=== PATIENT | female | born 1970 | race African-American/Black ===

== ENCOUNTER 2021-09-03 21:00 | Emergency (ER) | payer BC ==
[2021-09-03 21:56] LABS: Urine Blood Trace-intact (Negative); Urine Glucose Negative (Negative); Urine Protein 1+ (Negative); Urine pH 7.5 (5.0-7.0)
[2021-09-03 22:00] LABS: Absolute Lymphocytes (CBC) 2.4 K/uL (0.7-4.9); Hematocrit 40.5 % (36.0-45.0); Lymphocytes % 36.2 % (15.3-44.8); MPV 7.2 fL (7.6-11.3); RBC Red Blood Cell Count 4.84 M/uL (3.86-4.86)
[2021-09-03 22:04] LABS: Protime INR 1.03
--- NOTE | 2021-09-03 22:04 | RAD REPORT ---
EXAM DESCRIPTION: RAD - Chest Single View - 09/03/2021 9:56 pm CLINICAL HISTORY: COUGH COMPARISON: No comparisons FINDINGS: Lines: None. Lungs: No evidence of edema or pneumonia. Pleural: No significant pleural effusions or pneumothorax. Cardiac: The heart size is within normal limits. Bones: No acute fractures. Other: IMPRESSION: No acute cardiopulmonary disease.
[2021-09-03 22:17] LABS: ALT/SGPT 25 U/L (12-78); AST/SGOT 16 U/L (15-37); Albumin 3.3 g/dL (3.4-5.0); Alkaline Phosphatase 69 U/L (45-117); BUN Blood Urea Nitrogen 10 mg/dL (7-18); Bicarbonate 31 mmol/L (21-32); Bilirubin Total 0.2 mg/dL (0.2-1.0); Glomerular Filtration Rate 108 ml/min (=/>90); Glucose Level 93 mg/dL (74-106); Magnesium 1.8 mg/dL (1.8-2.4); NT PRO-BNP 24 pg/mL (<125); Potassium 3.6 mmol/L (3.5-5.1); Protein, Total 8.1 g/dL (6.4-8.2); Sodium Level 139 mmol/L (136-145); Troponin High Sensitivity 7.4 pg/mL (<58.9)
[2021-09-03 22:18] LABS: Bilirubin Direct < 0.1 mg/dL (0-0.2)
--- NOTE | 2021-09-03 22:37 | ER ---
Nurse's Notes [facility] Name: Herminia Giron Age: 51 yrs Sex: Female : 1970 Arrival Date: 09/03/2021 Time: 21:02 Bed 19 Private MD: Celso Ruiz Diagnosis: Dizziness and giddiness;Essential (primary) hypertension Presentation: 09/03 21:24 Chief complaint: Patient states: I took my blood pressure this morning and it was kd3 200/115. I have a little bit of a headache and I am a little dizzy. I took my amlodipine around lunchtime. Coronavirus screen: Vaccine status: Patient reports receiving the 2nd dose of the covid vaccine. Ebola Screen: Patient negative for fever greater than or equal to 101.5 degrees Fahrenheit, and additional compatible Ebola Virus Disease symptoms. 21:24 Method Of Arrival: Ambulatory kd3 21:26 Initial Sepsis Screen: Does the patient meet any 2 criteria? No. Patient's initial kd3 sepsis screen is negative. Does the patient have a suspected source of infection? No. Patient's initial sepsis screen is negative. Risk Assessment: Do you want to hurt yourself or someone else? Patient reports no desire to harm self or others. Onset of symptoms was September 03, 2021. 21:26 Acuity: CRISTAL 3 kd3 Triage Assessment: 21:29 General: Appears in no apparent distress. Behavior is calm, cooperative. Pain: kd3 Complains of pain in headache. 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 - Social history:: Smoking status: unknown. Screenin:31 Abuse screen: Denies threats or abuse. Denies injuries from another. Nutritional kd3 screening: No deficits noted. Tuberculosis screening: No symptoms or risk factors identified. Fall Risk None identified. Assessment: 21:32 General: Appears in no apparent distress. Behavior is calm, cooperative. Pain: kd3 Complains of pain in headache. Neuro: Level of Consciousness is awake, alert, obeys commands, Oriented to person, place, time, situation. Cardiovascular: Patient's skin is warm and dry. Respiratory: Airway is patent Trachea midline Respiratory effort is even, unlabored, Respiratory pattern is regular, symmetrical. Vital Signs: 21:26 BP 189 / 97; Pulse 82; Resp 18; Temp 98.5(O); Pulse Ox 97% on R/A; Weight 140.61 kg; kd3 Height 5 ft. 2 in. (157.48 cm); Pain 0/10; 21:32 BP 165 / 88; Pulse 81; Resp 18; Pulse Ox 96% on R/A; kd3 22:56 BP 133 / 70; Pulse 79; Resp 15; Pulse Ox 100% on R/A; kd3 21:26 Body Mass Index 56.70 (140.61 kg, 157.48 cm) kd3 ED Course: 21:02 Patient arrived in ED. as 21:02 Celso Ruiz MD is Private Physician. as 21:17 Papa Cheng MD is Attending Physician. yan 21:24 Alyce Delgado, NATALI is Primary Nurse. kd3 21:29 Triage completed. kd3 21:29 Arm band placed on right wrist. kd3 21:31 Patient has correct armband on for positive identification. kd3 21:31 No provider procedures requiring assistance completed. kd3 21:58 XRAY Chest (1 view) In Process Unspecified. EDMS 22:36 Celso Ruiz MD is Referral Physician. yan 22:57 IV discontinued, intact, bleeding controlled, No redness/swelling at site. Pressure kd3 dressing applied. Administered Medications: No medications were administered Medication: 21:32 VIS not applicable for this client. kd3 Outcome: 22:36 Discharge ordered by . yan 22:57 Discharged to home ambulatory. kd3 22:57 Condition: stable 22:57 Discharge instructions given to patient, family, Instructed on discharge instructions, follow up and referral plans. medication usage, Demonstrated understanding of instructions, follow-up care, medications, Prescriptions given X 3. 22:57 Patient left the ED. kd3 23:17 Patient left the ED. zm Signatures: Dispatcher [employer] EDMS Papa Cheng MD MD yan Saulo, Marjan as Sandy, Alyce, NATALI RN kd3 Majo Vernon
--- NOTE | 2021-09-03 22:37 | EDPHYS ---
Physician Documentation [facility] Name: Herminia Giron Age: 51 yrs Sex: Female : 1970 Arrival Date: 09/03/2021 Time: 21:02 Bed 19 Private MD: Celso Ruiz ED Physician Papa Cheng HPI: 09/03 21:44 This 51 yrs old Black Female presents to ER via Ambulatory with complaints of High yan Blood Pressure. 21:44 The patient has elevated blood pressure and discovered this WORK. Onset: The yan symptoms/episode began/occurred today. Modifying factors: The symptoms are aggravated by activity, The symptoms are alleviated by remaining still. Associated signs and symptoms: The patient has no apparent associated signs or symptoms. The patient has experienced similar episodes in the past, a few times. 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 - Social history:: Smoking status: unknown. ROS: 21:46 Constitutional: Negative for fever, chills, and weight loss, Eyes: Negative for injury, yan pain, redness, and discharge, ENT: Negative for injury, pain, and discharge, Neck: Negative for injury, pain, and swelling, Cardiovascular: Negative for chest pain, palpitations, and edema, Respiratory: Negative for shortness of breath, cough, wheezing, and pleuritic chest pain, Abdomen/GI: Negative for abdominal pain, nausea, vomiting, diarrhea, and constipation, Back: Negative for injury and pain, : Negative for injury, bleeding, discharge, and swelling, MS/Extremity: Negative for injury and deformity, Skin: Negative for injury, rash, and discoloration, Psych: Negative for depression, anxiety, suicide ideation, homicidal ideation, and hallucinations, Allergy/Immunology: Negative for hives, rash, and allergies, Endocrine: Negative for neck swelling, polydipsia, polyuria, polyphagia, and marked weight changes, Hematologic/Lymphatic: Negative for swollen nodes, abnormal bleeding, and unusual bruising. 21:46 Neuro: Positive for dizziness. Exam: 21:46 Constitutional: This is a well developed, well nourished patient who is awake, alert, yan and in no acute distress. Head/Face: Normocephalic, atraumatic. Eyes: Pupils equal round and reactive to light, extra-ocular motions intact. Lids and lashes normal. Conjunctiva and sclera are non-icteric and not injected. Cornea within normal limits. Periorbital areas with no swelling, redness, or edema. ENT: Nares patent. No nasal discharge, no septal abnormalities noted. Tympanic membranes are normal and external auditory canals are clear. Oropharynx with no redness, swelling, or masses, exudates, or evidence of obstruction, uvula midline. Mucous membranes moist. Neck: Trachea midline, no thyromegaly or masses palpated, and no cervical lymphadenopathy. Supple, full range of motion without nuchal rigidity, or vertebral point tenderness. No Meningismus. Chest/axilla: Normal chest wall appearance and motion. Nontender with no deformity. No lesions are appreciated. Cardiovascular: Regular rate and rhythm with a normal S1 and S2. No gallops, murmurs, or rubs. Normal PMI, no JVD. No pulse deficits. Respiratory: Lungs have equal breath sounds bilaterally, clear to auscultation and percussion. No rales, rhonchi or wheezes noted. No increased work of breathing, no retractions or nasal flaring. Abdomen/GI: Soft, non-tender, with normal bowel sounds. No distension or tympany. No guarding or rebound. No evidence of tenderness throughout. Back: No spinal tenderness. No costovertebral tenderness. Full range of motion. Skin: Warm, dry with normal turgor. Normal color with no rashes, no lesions, and no evidence of cellulitis. MS/ Extremity: Pulses equal, no cyanosis. Neurovascular intact. Full, normal range of motion. Neuro: Awake and alert, GCS 15, oriented to person, place, time, and situation. Cranial nerves II-XII grossly intact. Motor strength 5/5 in all extremities. Sensory grossly intact. Cerebellar exam normal. Normal gait. Psych: Awake, alert, with orientation to person, place and time. Behavior, mood, and affect are within normal limits. 21:46 Musculoskeletal/extremity: DVT Exam: No signs of deep vein thrombosis. no pain, no swelling, no tenderness, negative Homans' sign noted on exam, no appreciated bluish discoloration, no erythema, no increased warmth. 23:15 ECG was reviewed by the Attending Physician. [facility] Vital Signs: 21:26 BP 189 / 97; Pulse 82; Resp 18; Temp 98.5(O); Pulse Ox 97% on R/A; Weight 140.61 kg; kd3 Height 5 ft. 2 in. (157.48 cm); Pain 0/10; 21:32 BP 165 / 88; Pulse 81; Resp 18; Pulse Ox 96% on R/A; kd3 22:56 BP 133 / 70; Pulse 79; Resp 15; Pulse Ox 100% on R/A; kd3 21:26 Body Mass Index 56.70 (140.61 kg, 157.48 cm) kd3 MDM: 21:17 Patient medically screened. [facility] 21:47 Differential diagnosis: hypertensive crisis, Malignant HTN. Differential diagnosis: yan cardiac arrhythmia, CVA, generalized weakness, GI bleed, idiopathic dizziness, near-syncope, TIA. Data reviewed: vital signs, nurses notes, lab test result(s), EKG, radiologic studies, plain films. Data interpreted: laboratory monitor: rate is 81 beats/min, rhythm is regular. Test interpretation: by ED physician or midlevel provider: ECG, plain radiologic studies. Counseling: I had a detailed discussion with the patient and/or guardian regarding: the historical points, exam findings, and any diagnostic results supporting the discharge/admit diagnosis, the presence of at least one elevated blood pressure reading (>120/80) during this emergency department visit, lab results, radiology results, the need for outpatient follow up, for definitive care, a family practitioner. 09/03 20:17 Order name: Basic Metabolic Panel; Complete Time: :36 [facility] 09/03 21: Order name: CBC with Diff; Complete Time: :36 [facility] 09/03 21: Order name: LFT's; Complete Time: 22:36 [facility] 09/03 21: Order name: Magnesium; Complete Time: 22:36 [facility] 09/03 21: Order name: NT PRO-BNP; Complete Time: 22:36 [facility] 09/03 21:17 Order name: PT-INR; Complete Time: 22:36 [facility] 09/03 21:17 Order name: Troponin HS; Complete Time: 22:36 [facility] 09/03 21:17 Order name: XRAY Chest (1 view); Complete Time: 22:36 [facility] 09/03 21:17 Order name: EKG; Complete Time: 21:18 [facility] 09/03 21:17 Order name: Cardiac monitoring; Complete Time: 22:23 [facility] 09/03 21:17 Order name: EKG - Nurse/Tech; Complete Time: 22:23 [facility] 09/03 21:17 Order name: IV Saline Lock; Complete Time: 22:23 [facility] 09/03 21:17 Order name: Labs collected and sent; Complete Time: 22:23 [facility] 09/03 21:56 Order name: Urine Dipstick-Ancillary; Complete Time: 22:36 EDMS 09/03 21:17 Order name: O2 Per Protocol; Complete Time: 22:23 [facility] 09/03 21:17 Order name: O2 Sat Monitoring; Complete Time: 22:23 [facility] 09/03 21:17 Order name: Urine Dipstick-Ancillary (obtain specimen); Complete Time: :23 [facility] EC:15 Rate is 81 beats/min. Rhythm is regular. QRS Left Hand is Normal. TX interval is normal. QRS yan interval is normal. QT interval is normal. No Q waves. T waves are Normal. No ST changes noted. Clinical impression: Normal ECG and No evidence of ischemia. Interpreted by me. Reviewed by me. Administered Medications: No medications were administered Disposition Summary: 09/03/21 22:36 Discharge Ordered Location: Home yan Problem: new yan Symptoms: have improved yan Condition: Stable yan Diagnosis - Dizziness and giddiness yan - Essential (primary) hypertension yan Followup: yan - With: - When: 2 - 3 days - Reason: Recheck today's complaints, Continuance of care, Re-evaluation by your physician Discharge Instructions: - Discharge Summary Sheet yan - Dizziness yan - Hypertension, Adult yan - Hypertension, Adult, [id number] yan - How to Take Your Blood Pressure, [id number] yan - Dizziness, [id number] yan - Managing Your Hypertension yan Forms: - Medication Reconciliation Form yan - Thank You Letter yan - Antibiotic Education yan - Prescription Opioid Use yan Prescriptions: - Meclizine 25 mg Oral Tablet - take 1 tablet by ORAL route every 8 hours As needed; 30 tablet; Refills: 0, yan Product Selection Permitted - Hydrochlorothiazide 25 mg Oral Tablet - take 1 tablet by ORAL route once daily .; 30 tablet; Refills: 0, Product yan Selection Permitted - Potassium Chloride 20 meq Oral Packet - take 1 packet by ORAL route once daily 1 packet in 6 (six) ounces of water or yan juice; Take after meal; 30 packet; Refills: 0, Product Selection Permitted Signatures: Dispatcher [employer] Papa Hamilton MD MD cha Doucette, Kyli RN RN kd3
[2021-09-04 00:55] VITALS: TEMP 98.5
[2021-09-04 00:58] VITALS: BP 133/70; O2SAT 100
== END 2021-09-03 23:17 | disposition home or self-care (01) ==
LOC: ER 21:00
DX: R42 Dizziness and giddiness (principal); I10 Essential (primary) hypertension; E78.00 Pure hypercholesterolemia, unspecified
CPT/HCPCS: 36415; 71045; 80048; 80076; 81003; 83735; 83880; 84484; 85025; 85610; 93005